=== PATIENT | female | born 1950 | race Caucasian/White ===

== ENCOUNTER 2016-06-24 19:55 | Emergency (ER) | payer OTHER, MEDICARE ==
[~2016-06-24] VITALS: Ht 162.6 cm; Wt 94.3 kg
[~2016-06-24 19:55] MED LIST: ASPIR 8181 MG PO; BUPROPION HYDR300 MG PO; BUSPIRONE10 MG PO; CITALOPRAM10 MG PO; FENOFIBRATE160 MG PO; FISH OIL CONC1000 MG PO; FOLIC ACID0.4 MG PO; GLUCOSAMINE & C1 CAP PO; KEFLEX500 MG PO; METAXALONE800 MG PO; MOTRIN600 MG PO; PERCOCET 325 MG1 TA2 PO; PRAVASTATIN40 MG PO; PROCHLORPERAZIN10 M1 PO; PROPRANOLOL HYD40 MG PO; RITE AID TURME500 MG PO; STOOL SOFTENER100 MG PO; VITAB121000 PO; VITAMIN D31000 IU PO; XALATAN 0.50 GTT/1 B OPH
--- NOTE | 2016-06-24 20:44 | ED INFLUENZA/URI COMPLAINT ---
History of Present Illness General Chief Complaint: General Adult Stated Complaint: NON PRODUCTIVE COUGH X1WEEK DIFF BREATHING/FEVER Source: patient Exam Limitations: no limitations Vital Signs & Intake/Output Vital Signs & Intake/Output Vital Signs Date Time Temp Pulse Resp B/P Pulse O2 O2 Flow FiO2 Ox Delivery Rate 06/24 2111 98 06/24 2004 97.3 88 20 123/74 95 Room Air Allergies Coded Allergies: MDX - Diclofenac (From ARTHROTEC) (SEVERE MUSCLE PAIN 07/24/14) MDX - Misoprostol (From ARTHROTEC) (SEVERE MUSCLE PAIN 07/24/14) MDX - TAPE (TAPE) (PT MED LIST STATES BANDAID/SURGICAL TAPE 07/24/14) MDX - Tramadol (From ULTRAM) (NAUSEA 07/24/14) Reconcile Medications Albuterol Sulfate (Proventil Hfa) 90 MCG HFA.AER.AD 2 PUF INH Q4 sob Aspirin (Ecotrin) 81 MG TABLET.DR 1 TAB PO QHS HEART/BLOOD (Reported) Azithromycin (Zithromax) 250 MG TABLET 1 DP PO AD bronchitis 2 the first day followed by 1 for days 2-5 Bupropion Hydrochloride 300 MG T24 1 TAB PO QAM BOOST CITALOPRAM (Reported) BUSPIRONE HCL (Buspirone HCl) 10 MG TABLET 4 TAB PO AD STRESS/MIGRAINE ( Reported) Cephalexin (Keflex) 500 MG CAP 1 TAB PO 4 TIMES/DAY INFECTION Cholecalciferol (Vitamin D3) 1,000 IU TAB 1 TAB PO AD SUPPLEMENT (Reported) Chondroitin Sulf/Glucosamine (Glucosamine & Chondroitin) 1 CAP CAP 1 CAP PO BID SUPPLEMENT (Reported) Citalopram Hydrobromide (Citalopram HBr) 10 MG TABLET 1 TAB PO BID STRESS ( Reported) Cyanocobalamin (Vitamin B-12) 1,000 MCG TABLET 1 TAB PO DAILY SUPPLEMENT ( Reported) Docusate Sodium (Stool Softener) 100 MG CAPSULE 1-2 SGL PO QHS STOOL SOFTENER (Reported) Fenofibrate 160 MG TAB 1 TAB PO QPM CHOLESTEROL (Reported) Fish Oil (Fish Oil Concentrate) 1,000 MG SGL 3,000 MG PO DAILY SUPPLEMENT ( Reported) Folic Acid 0.4 MG TAB 1 TAB PO QPM WM SUPPLEMENT (Reported) Ibuprofen (Motrin) 600 MG TAB 1 TAB PO Q6 PRN PAIN Latanoprost (Xalatan 0.005% 2.5 Ml) 0.005 % DROPS 1 GTT OPH QPM BOTH EYES- GLAUCOMA (Reported) Metaxalone 800 MG TABLET 1 TAB PO PRN MIGRAINES (Reported) OXYCODONE HCL/ACETAMINOPHEN (Percocet 5-325 MG Tablet) 325 MG/5 MG TAB 1 TAB PO Q4-6 PRN PRN BREAKTHROUGH PAIN Pravastatin Sodium (Pravastatin) 40 MG TAB 1 TAB PO QPM CHOLESTEROL (Reported ) Prednisone (Deltasone) 20 MG TABLET 1 TAB PO BID BRONCHITIS Prochlorperazine Maleate 10 MG TAB 1 TAB PO PRN MIGRAINE (Reported) Propranolol Hydrochloride 40 MG TAB 1 TAB PO BID HEART (Reported) Turmeric Extract ([facility] Turmeric) 500 MG CAP 2,000 MG PO DAILY SUPPLEMENT (Reported) Triage Note: PT TO ED C/O NON PRODUCTIVE COUGH FOR 9 DAYS. O2 SAT 95% ON RA IN TRIAGE. COURSE RESPIRATIONS ON AUSCULTATION. SPEAKING WITHOUT DIFFICULTY Triage Nurses Notes Reviewed? yes Onset: Abrupt Duration: week(s):, constant, continues in ED Timing: recent history Severity: moderate, severe No Modifying Factors: none HPI: 65-year-old female comes into emergency room for further evaluation of cough, nonproductive, fever chills intermittently, runny nose. Since is been going on for the past week. Fevers are intermittent. Some mild shortness of breath associated with the last night. No chest pain. Only pain when she coughs in her abdomen. Denies any other associated symptoms. Past History Travel History Traveled to [place] past 21 day No Medical History Any Pertinent Medical History? see below for history Neurological: migraine EENT: glaucoma Cardiovascular: hypertension, hyperlipidemia Surgical History Surgical History: non-contributory Psychosocial History What is your primary language Burkinan Tobacco Use: Never used ETOH Use: denies use Illicit Drug Use: denies illicit drug use Family History Hx Contributory? No Review of Systems Review of Systems Constitutional: Reports: see HPI. EENTM: Reports: see HPI. Respiratory: Reports: see HPI. Cardiovascular: Reports: no symptoms. GI: Reports: no symptoms. Genitourinary: Reports: no symptoms. Musculoskeletal: Reports: no symptoms. Skin: Reports: no symptoms. Neurological/Psychological: Reports: no symptoms. Hematologic/Endocrine: Reports: no symptoms. Immunologic/Allergic: Reports: no symptoms. All Other Systems: Reviewed and Negative Physical Exam Physical Exam General Appearance: well developed/nourished, no apparent distress, alert, awake Head: atraumatic, normal appearance Eyes: Bilateral: normal appearance, EOMI. Ears, Nose, Throat: normal ENT inspection, moist mucous membrane, hearing grossly normal Neck: normal inspection, full range of motion Respiratory: normal breath sounds, no respiratory distress Cardiovascular: regular rate/rhythm Gastrointestinal: normal bowel sounds, soft Back: normal inspection Extremities: normal inspection, normal range of motion Neurologic/Psych: awake, alert, oriented x 3, normal gait, normal mood/affect Skin: intact, normal color Core Measures Severe Sepsis Present: No Septic Shock Present: No Progress Differential Diagnosis: influenza, meningitis, neutropenia, otitis, pneumonia, pharyngitis, sinusitis Plan of Care: Orders Procedure Date/time Status RAPID VIRAL INFLUENZA A 06/24 2042 Complete Diagnostic Imaging: Viewed by Me: Radiology Read. Discussed w/RAD: Radiology Read. Radiology Impression: SERVICE DATE: 06/24/16 EXAM TYPE: RAD - XRY-CHEST XRAY, PA AND LATERAL EXAMINATION: XR CHEST CLINICAL INFORMATION: Cough. COMPARISON: Chest x-ray 05/10/2015 TECHNIQUE: PA and lateral views of the chest were obtained. FINDINGS: No significant abnormality is noted involving the heart , lungs, mediastinum, bony thorax, or soft tissues. IMPRESSION: Normal chest DICTATED BY: EMMY HAMEED MD DATE/TIME DICTATED:06/24/162128 LEAD ANDROID DEVELOPER :GAVIOTA DATE/TIME TRANSCRIBED:06/24/162128 Initial ED EKG: none Departure Departure Disposition: HOME OR SELF CARE Condition: Stable Clinical Impression Primary Impression: Bronchitis Referrals: SIMI GUIDO MD (PCP/Family) Additional Instructions: Take Z-Garrick, albuterol, and prednisone as prescribed. Rest. Motrin as needed. Return if any other concerns worsening symptoms. Please go over all results of today's visit with your primary care doctor. Contact your primary care doctor to let them know you were here in the emergency room. There may be nonspecific findings which may not be related to your visit today here in the emergency room but may require further evaluation and chronic monitoring by your primary care doctor. If you had a laceration today the chance of foreign body always remains. You should follow-up with your primary care doctor for recheck in 3-5 days for a wound check. If you had an x-ray done there is a chance that a fracture could have been missed on initial read and you should follow-up with your primary care doctor for repeat x-rays if symptoms persist. If your blood pressure was elevated here in the emergency room please have rechecked by her primary care doctor within the next 48 hours by your primary care doctor. If you were prescribed a narcotic here in the emergency room or any type of controlled substances you're not allowed to drive while taking this medication or operate any type of heavy machinery. Narcotics can make you feel lightheaded dizziness nausea and can cause constipation. 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 Thank you for choosing [facility] emergency room. Please return to the emergency room immediately if you have any other concerns worsening of symptoms. Departure Forms: Customer Survey General Discharge Information Prescriptions: Current Visit Scripts Azithromycin (Zithromax) 1 DP PO AD #6 TAB 2 the first day followed by 1 for days 2-5 Albuterol Sulfate (Proventil Hfa) 2 PUF INH Q4 #1 INHAL Prednisone (Deltasone) 1 TAB PO BID #10 MG Comments 06/24/2016 9:50:43 PM Patient clinically looks well. Nontoxic-appearing. In no apparent distress. No respiratory distress. Symptoms most consistent with bronchitis. Follow-up with primary care doctor. Return if any concerns worsening symptoms.
[2016-06-24] MEDS ORDERED: DELTASONE20 MG PO (21:32)
[2016-06-24] MEDS ORDERED: ZITHROMAX250 M2 PO (21:32)
[2016-06-24] MEDS ORDERED: PROVENTIL HFA6.7 GM INH (21:32)
--- NOTE | 2016-06-24 21:38 | RADIOLOGY REPORT ---
EXAMINATION: XR CHEST CLINICAL INFORMATION: Cough. COMPARISON: Chest x-ray 05/10/2015 TECHNIQUE: PA and lateral views of the chest were obtained. FINDINGS: No significant abnormality is noted involving the heart, lungs, mediastinum, bony thorax, or soft tissues. IMPRESSION: Normal chest
[2016-06-24 22:09] VITALS: BP 120/78
== END 2016-06-24 22:10 ==
LOC: ERH 19:55
DX: J40 Bronchitis, not specified as acute or chronic (principal)
CPT/HCPCS: 1263; 87804; 87804-59

== ENCOUNTER → 2016-12-26 | Day surgery (SDC) | payer OTHER, MEDICARE ==
--- NOTE | 2016-12-23 12:43 | History & Physical Pre-Op ---
General Information and HPI History of Present Illness: Joana is a 66-year-old female with a long-standing and worsening complaint of painful hallux limitus right foot. The patient has undergone an extended course of conservative care, including shoe gear and activity modification, rest, immobilization and courses of NSAIDs. None of this is yielded her any significant relief. The patient presents today for preoperative surgical consultation. Allergies/Medications Allergies: Coded Allergies: MDX - Diclofenac (From ARTHROTEC) (SEVERE MUSCLE PAIN 07/24/14) MDX - Misoprostol (From ARTHROTEC) (SEVERE MUSCLE PAIN 07/24/14) MDX - Tramadol (From [employer]) (NAUSEA 07/24/14) Uncoded Allergies: SILK TAPE (Severe, HIVES 12/22/16) Home Med list Aspirin (Ecotrin) 81 MG TABLET.DR 1 TAB PO QHS HEART/BLOOD (Reported) Aspirin (Ecotrin*) 81 MG TABLET.DR 1 TAB PO DAILY PROPHO (Reported) Bupropion Hydrochloride 300 MG T24 1 TAB PO QAM BOOST CITALOPRAM (Reported) Buspirone HCl 10 MG TABLET ANXIETY (Reported) 1 TAB AT 6PM 3 TABS AT HS Citalopram Hydrobromide (Citalopram HBr) 10 MG TABLET ANXIETY (Reported) 2 TABS AM 1 TAB PM Fenofibrate 160 MG TAB 1 TAB PO QPM CHOLESTEROL (Reported) Fish Oil (Fish Oil Concentrate) 1,000 MG SGL 3,000 MG PO DAILY SUPPLEMENT ( Reported) Folic Acid 0.4 MG TAB 1 TAB PO QPM WM SUPPLEMENT (Reported) Latanoprost (Xalatan 0.005% 2.5 Ml) 0.005 % DROPS 1 GTT OPH QPM BOTH EYES- GLAUCOMA (Reported) Pantoprazole Sodium (Protonix) 20 MG TABLET.DR 1 TAB PO DAILY GERD (Reported) Pravastatin Sodium (Pravastatin) 40 MG TAB 1 TAB PO QPM CHOLESTEROL (Reported ) Propranolol LA (Inderal LA) 60 MG CAP.SA.24H 1 CAP PO BID MIGRAINE (Reported) Past History Medical History Neurological: migraine EENT: glaucoma Cardiovascular: hypertension, hyperlipidemia Surgical History Pertinent Surgical History: non-contributory Review of Systems Review of Systems: Unremarkable except for that noted in history present illness Exam & Diagnostic Data Physical Exam: Lungs clear bilaterally. Heart sounds rate and rhythm regular. Lower extremity physical exam demonstrates intact pedal pulses bilaterally. Pulses dorsalis pedis and posterior tibial arteries are palpable bilaterally. Patient without any sensory motor deficits. Deep tendon reflexes grossly intact. Patient noted to have same and pain with palpation range of motion through the right first metatarsophalangeal joint. Assessment/Plan Assessment/Plan: Painful hallux limitus right foot. A lengthy discussion reviewing both surgical and conservative options was held the patient at bedside and the patient elects to go forward with surgery despite the risks. As Ranked By This Provider Problem List: 1. Hallux rigidus of right foot Attending MD Review Statement Attending Statement Attending MD Statement: examined this patient
[~2016-12-26] VITALS: Ht 165.1 cm; Wt 77.1 kg
[~2016-12-26] MED LIST changes: +ASPIRIN EC81 M1 PO; +BUSPIRONE HCL10 M1; -BUSPIRONE10 MG PO; +CITALOPRAM HBR10 MG; -CITALOPRAM10 MG PO; +DELTASONE20 MG PO; +INDERAL LA60 M1 PO; +PROTONIX20 M1 PO; +PROVENTIL HFA6.7 GM INH; +ZITHROMAX250 M2 PO
--- NOTE | 2016-12-26 13:43 | Operative Report ---
Operative/Inv Procedure Report Surgery Date: 12/26/16 Name of Procedure: 1 Andrews bunionectomy right foot 2 intraoperative administration of ankle block anesthesia Pre-Operative Diagnosis: 1 hallux limitus right foot Post-Operative Diagnosis: The same Estimated Blood Loss: scant Surgeon/Substation Supervisor: SERGIO GONZALEZ,MAMIE Can DPM Anesthesia: moderate sedation, block Operative/Procedure Note Note: After obtaining informed consent the patient was brought to the operating room and placed on the operating table in the supine position. The patient isn't securely fastened to the operating table utilizing safety belt. After administration of IV sedation, 10 mL of 0.5% Marcaine plain was infiltrated about the patient's right ankle. Well-padded ankle tourniquet was placed about the patient's right lower extremity. 2 g of Ancef were delivered intravenously times one dose. The right foot and ankle within scrubbed prepped and draped in usual aseptic manner. Attention directed to the dorsal aspect of the right foot , where 6 cm linear incision made just medial to the course of the extensive list lungs tendon. Skin was as a 15 blade and deepened subtenons tissues. A linear capsulotomy was performed exposing the medial eminence and the dorsal exostosis. This removed a sagittal bone saw. The dissection was then continued onto the base of proximal phalanx with the periosteum was incised reflected. Sagittal bone saw was utilized to perform a through and through osteotomy in the proximal segment was freed and passed from the operative field. The capture structures reapproximated 3-0 Vicryl septae stitches reprepped with 4-0 Vicryl. The skin edges were then reapproximated 4-0 nylon. Incision was dressed with Xeroform 4 x 4's Kerlix and Yonatan wrap. The patient was noted to tolerate both procedure and anesthesia well and the patient was transported from the operating room to recovery by sent stable best assess intact all digits right foot.
== END ==
LOC: STS 02:05
DX: M20.5X1 Other deformities of toe(s) (acquired), right foot (principal); I10 Essential (primary) hypertension; E78.5 Hyperlipidemia, unspecified; M20.21 Hallux rigidus, right foot
CPT/HCPCS: 88304; J0690; J2001; J2250